=== PATIENT | female | born 1955 | race Caucasian/White ===

== ENCOUNTER 2019-09-24 14:33 | Emergency (ER) | payer MEDICARE, OTHER ==
[~2019-09-24] VITALS: Ht 162 cm; Wt 45.0 kg
[2019-09-24] MEDS ORDERED: MORP-68 (14:46)
[2019-09-24] MEDS ORDERED: CYCL10TA9 (14:46)
[2019-09-24] MEDS ORDERED: FAMO20TA5 (14:46)
[2019-09-24] MEDS ORDERED: SENN-175 (14:46)
[2019-09-24] MEDS ORDERED: LORAZEPAM (14:46)
[2019-09-24] MEDS ORDERED: NAPR-1067 (14:46)
--- NOTE | 2019-09-24 14:55 | ED Head Injury ---
General Chief Complaint: Trauma-Non Activation Stated Complaint: FELL HIT HEAD Nursing Triage Note: PT STATES HAS FALL 2 WEEKS AGO AND TODAY HAS L SHOULDER PAIN AND L BASE OF HEAD PAIN 02/01. PT HAS BEEN DIZZY AT TIMES SINCE FALL 2 WEEKS AGO WHEN TURNS HEAD. PT IS HOSPICE PT AND HAS ALS Source: patient Exam Limitations: no limitations History of Present Illness Date Seen by Provider: Sep 24, 2019 Time Seen by Provider: 14:53 Initial Comments To ER with reports of a fall 2 weeks ago and a recurrent fall again today. Today she developed headache and dizziness as well as neck pain and left shoulder pain. [facility] is on [facility]. She states that the dizziness began today after the fall. Occurred: just prior to arrival Severity: moderate Location: occipital Method of Injury: fell Loss of Consciousness: no loss of consciousness Associated Systoms: Other (dizziness) Allergies and Home Medications Allergies Coded Allergies: No Known Drug Allergies (Unverified , 09/24/19) Patient Home Medication List Home Medication List Reviewed: Yes Review of Systems Review of Systems Constitutional: see HPI, dizziness Eyes: No Symptoms Reported Ears, Nose, Mouth, Throat: no symptoms reported Respiratory: no symptoms reported Cardiovascular: no symptoms reported Genitourinary: no symptoms reported Musculoskeletal: see HPI, neck pain Skin: no symptoms reported Psychiatric/Neurological: No Symptoms Reported Endocrine: No Symptoms Reported Hematologic/Lymphatic: No Symptoms Reported Past Haxdbyb-Wzcsxx-Qhmbha Hx Patient Social History Alcohol Use: Occasionally Uses Recreational Drug Use: No Smoking Status: Never a Smoker Recent Foreign Travel: No Contact w/Someone Who Travel: No Recent Infectious Disease Expo: No Recent Hopitalizations: No Past Medical History Surgeries: Yes (SPINAL TUMOR) Tubal Ligation Respiratory: No Cardiac: No Neurological: Yes (ALS) Gastrointestinal: Yes Gastroesophageal Reflux Musculoskeletal: No Endocrine: No HEENT: No Cancer: No Psychosocial: No Integumentary: No Physical Exam Vital Signs Vital Signs - First Documented 09/24/19 14:39 Temp 36.8 Pulse 100 Resp 18 B/P (MAP) 124/84 (97) Pulse Ox 100 Capillary Refill : Less Than 3 Seconds Height, Weight, BMI Height: '" Weight: lbs. oz. kg; 17.00 BMI Method: General Appearance: WD/WN, no apparent distress, thin HEENT: PERRL/EOMI, normal ENT inspection, TMs normal Neck: non-tender, limited range of motion, other (refuses to or cervical collar) Respiratory: no respiratory distress, no accessory muscle use Extremities: normal range of motion, non-tender Psychiatric: alert, oriented x 3 Crainal Nerves: normal hearing, normal speech, PERRL Skin: normal color, warm/dry [place] Coma Score Best Eye Response: (4) Open Spontaneously Best Verbal Response: (5) Oriented Best Motor Response: (6) Obeys Commands Evart Total: 15 Progress/Results/Core Measures Results/Orders My Orders Orders - ERNESTO HOUSE APRN Ct Head/Cervical Spine Wo (09/24/19 14:48) Shoulder, Left, 3 Views (09/24/19 14:52) Meclizine Tablet (Antivert Tablet) (09/24/19 15:00) Medications Given in ED Current Medications Medications Dose Ordered Sig/Chikis Route Start Time Stop Time Status Last Admin Dose Admin Meclizine HCl 25 mg ONCE ONCE PO 09/24/19 15:00 09/24/19 15:01 DC 09/24/19 14:57 25 MG Vital Signs/I&O 09/24/19 14:39 Temp 36.8 Pulse 100 Resp 18 B/P (MAP) 124/84 (97) Pulse Ox 100 Blood Pressure Mean: 97 Diagnostic Imaging Diagonstic Imaging: CT Comments NAME: BERNARDO SUN [facility] REC#: [id number] PT STATUS: REG ER : 1955 PHYSICIAN: ERNESTO HOUSE APRN ADMIT DATE: 09/24/19/ER Draft Date of Exam:09/24/19 CT HEAD/CERVICAL SPINE WO PROCEDURE: CT head and CT cervical spine without contrast. TECHNIQUE: Multiple contiguous axial images were obtained through the brain and cervical spine without the use of intravenous contrast. Sagittal and coronal reformations through the cervical spine were then performed. Auto Exposure Controls were utilized during the CT exam to meet ALARA standards for radiation dose reduction. All CT scans use one or more of the following dose optimizing techniques: automated exposure control, MA and/or KvP adjustment based on patient size and exam type or iterative reconstruction. INDICATION: Fall. Head and neck pain. COMPARISON: None. FINDINGS: CT head: The ventricles and cortical sulci are diffusely prominent, compatible with age-related volume loss. There is no midline shift or mass-effect. No acute intra-axial hemorrhage is seen. There are no abnormal areas of increased or decreased density to suggest acute hemorrhage or edema. No extra-axial masses or collections are present. The bony calvarium is intact. The visualized paranasal sinuses are unremarkable. The mastoid air cells are clear. CT cervical spine: Static alignment of the cervical spine is maintained. There is no significant anteroretrolisthesis. There is no evidence of jumped facets. Vertebral body heights are maintained. There is no evidence of acute fracture. No bony fragments are seen within the spinal canal. There are mild multilevel degenerative changes consistent with intervertebral disc height loss as well as anterior and posterior disc bulges. These changes appear greatest at the C4-C5 through C6-C7 levels. Pre and paravertebral soft tissue structures are unremarkable. Included portions of lung apices are clear. IMPRESSION: 1. No acute intracranial abnormality. No CT evidence of mass, acute infarct or intracranial hemorrhage. 2. No acute fracture dislocation of cervical spine. 3. Mild multilevel degenerative changes of cervical spine. Dictated on workstation # [id number] Dict: 09/24/19 1510 Trans: 09/24/19 1517 [facility] [id number] Interpreted by: REZA HARVEY MD Electronically signed by: Departure Impression Primary Impression: Cervical myofascial strain Qualified Codes: S16.1XXA - Strain of muscle, fascia and tendon at neck level, initial encounter Additional Impressions: Dizziness Concussion Disposition: HOME, SELF-CARE Condition: Stable Departure-Patient Inst. Decision time for Depature: 15:19 Referrals: TAZ VILLALOBOS MD (PCP/Family) Primary Care Physician Patient Instructions: Cervical Muscle Strain (DC), Concussion in Adults Add. Discharge Instructions: Use the dizziness medication as directed. Return to ER for any concerns. All discharge instructions reviewed with patient and/or family. Voiced understanding. Scripts Meclizine HCl (Meclizine HCl) 25 Mg Tablet 25 MG PO TID PRN for DIZZINESS, #10 TAB Prov: ERNESTO HOUSE [employer] ENGINEER 09/24/[address] [employer]INEER Sep 24, 2019 14:55
[2019-09-24] MEDS ORDERED: MECLIZINE 25 MG (ANTIVERT) TAB PO ONE (15:00)
--- NOTE | 2019-09-24 15:17 | Diagnostic Imaging Report ---
PROCEDURE: CT head and CT cervical spine without contrast. TECHNIQUE: Multiple contiguous axial images were obtained through the brain and cervical spine without the use of intravenous contrast. Sagittal and coronal reformations through the cervical spine were then performed. Auto Exposure Controls were utilized during the CT exam to meet ALARA standards for radiation dose reduction. All CT scans use one or more of the following dose optimizing techniques: automated exposure control, MA and/or KvP adjustment based on patient size and exam type or iterative reconstruction. INDICATION: Fall. Head and neck pain. COMPARISON: None. FINDINGS: CT head: The ventricles and cortical sulci are diffusely prominent, compatible with age-related volume loss. There is no midline shift or mass-effect. No acute intra-axial hemorrhage is seen. There are no abnormal areas of increased or decreased density to suggest acute hemorrhage or edema. No extra-axial masses or collections are present. The bony calvarium is intact. The visualized paranasal sinuses are unremarkable. The mastoid air cells are clear. CT cervical spine: Static alignment of the cervical spine is maintained. There is no significant anteroretrolisthesis. There is no evidence of jumped facets. Vertebral body heights are maintained. There is no evidence of acute fracture. No bony fragments are seen within the spinal canal. There are mild multilevel degenerative changes consistent with intervertebral disc height loss as well as anterior and posterior disc bulges. These changes appear greatest at the C4-C5 through C6-C7 levels. Pre and paravertebral soft tissue structures are unremarkable. Included portions of lung apices are clear. IMPRESSION: 1. No acute intracranial abnormality. No CT evidence of mass, acute infarct or intracranial hemorrhage. 2. No acute fracture dislocation of cervical spine. 3. Mild multilevel degenerative changes of cervical spine. Dictated by: Dictated on workstation # [id number]
[2019-09-24] MEDS ORDERED: MECL-106 PO (15:21)
--- NOTE | 2019-09-24 15:28 | Diagnostic Imaging Report ---
INDICATION: 2 weeks post fall, left shoulder pain TECHNIQUE: Three views of the left shoulder CORRELATION STUDY: None FINDINGS: The glenohumeral and acromioclavicular alignment are maintained and unremarkable. There is no evidence for acute fracture or dislocation. The visualized soft tissues are unremarkable. IMPRESSION: 1. Negative for acute bony abnormality about the shoulder. Dictated by: Dictated on workstation # [id number]
[2019-09-24 15:48] VITALS: BP 136/67
== END 2019-09-24 15:48 | disposition home or self-care (01) ==
LOC: ER 14:35
DX: S06.0X9A Concussion with loss of consciousness of unspecified duration, initial encounter (principal); S16.1XXA Strain of muscle, fascia and tendon at neck level, initial encounter; R40.2142 Coma scale, eyes open, spontaneous, at arrival to emergency department; R40.2252 Coma scale, best verbal response, oriented, at arrival to emergency department; R40.2362 Coma scale, best motor response, obeys commands, at arrival to emergency department; W19.XXXA Unspecified fall, initial encounter
CPT/HCPCS: 70450; 72125; 73030